=== PATIENT | male | born 1965 | race African-American/Black ===

== ENCOUNTER 2020-08-15 23:31 | Emergency (ER) | payer BC ==
[~2020-08-15] VITALS: Ht 182.9 cm; Wt 90.7 kg
[2020-08-16] MEDS ORDERED: FLEXERIL PO (03:23)
[2020-08-16] MEDS ORDERED: IBUPROFEN 800800 M1 PO (03:23)
[2020-08-16 03:35] VITALS: BP 121/85
== END 2020-08-16 03:32 | disposition home or self-care (01) ==
LOC: ER 23:31
DX: S16.1XXA Strain of muscle, fascia and tendon at neck level, initial encounter (principal); S39.012A Strain of muscle, fascia and tendon of lower back, initial encounter; M25.512 Pain in left shoulder; V49.88XA Car occupant (driver) (passenger) injured in other specified transport accidents, initial encounter; Y93.89 Activity, other specified; Y92.413 State road as the place of occurrence of the external cause; Y99.9 Unspecified external cause status